=== PATIENT | female | born 1970 | race Native Hawaiian/Other Pacific Islander ===

== ENCOUNTER 2018-06-20 09:00 | Emergency (ER) | payer SELFPAY ==
[2018-06-20 09:04] VITALS: BMI 34.4
--- NOTE | 2018-06-20 09:32 | C.PDOC ---
Time Seen by Provider: 06/20/18 09:11 Chief Complaint (Nursing): Dizziness/Lightheaded Past Medical History Vital Signs: Last Vital Signs Temp 99.1 F 06/20/18 09:04 Pulse 64 06/20/18 09:04 Resp 18 06/20/18 09:04 BP 127/79 06/20/18 09:04 Pulse Ox 99 06/20/18 09:04 - Medical History PMH: Anxiety (patient stated has had panic attacks), Asthma, Gall Bladder Disease, HTN, Hypothyroidism Denies: Chronic Kidney Disease Family History: States: Unknown Family Hx - Social History Hx Tobacco Use: No Hx Alcohol Use: No Hx Substance Use: No - Immunization History Hx Tetanus Toxoid Vaccination: No Hx Influenza Vaccination: Yes Hx Pneumococcal Vaccination: No ED Course And Treatment O2 Sat by Pulse Oximetry: 99 Disposition - Disposition
--- NOTE | 2018-06-20 09:33 | C.PDOC ---
History Of Present Illness 48 years old female presents to ED for complaints of left shoulder pain associated with intermittent dizziness that began 2 weeks ago. Patient describes pain is sharp and worsens with movement. Denies injuries, swelling, fever, chest pain, or any other complaints. Time Seen by Provider: 06/20/18 09:11 Chief Complaint (Nursing): Dizziness/Lightheaded History Per: Patient History/Exam Limitations: no limitations Onset/Duration Of Symptoms: Days Current Symptoms Are (Timing): Still Present Recent travel outside of the [place]: No Past Medical History Reviewed: Historical Data, Nursing Documentation, Vital Signs Vital Signs: Last Vital Signs Temp 99.1 F 06/20/18 09:04 Pulse 64 06/20/18 09:04 Resp 18 06/20/18 09:04 BP 127/79 06/20/18 09:04 Pulse Ox 99 06/20/18 09:04 - Medical History PMH: Anxiety (patient stated has had panic attacks), Asthma, Gall Bladder Disease, HTN, Hypothyroidism Denies: Chronic Kidney Disease Family History: States: Unknown Family Hx - Social History Hx Tobacco Use: No Hx Alcohol Use: No Hx Substance Use: No - Immunization History Hx Tetanus Toxoid Vaccination: No Hx Influenza Vaccination: Yes Hx Pneumococcal Vaccination: No Review Of Systems Except As Marked, All Systems Reviewed And Found Negative. Constitutional: Negative for: Fever, Chills Cardiovascular: Negative for: Chest Pain Gastrointestinal: Negative for: Nausea, Vomiting, Diarrhea Musculoskeletal: Positive for: Shoulder Pain (Left shoulder ) Skin: Negative for: Rash Neurological: Positive for: Dizziness. Negative for: Weakness, Numbness Physical Exam - Physical Exam Appears: Non-toxic, No Acute Distress Skin: Normal Color, Warm, Dry, No Rash Head: Atraumatic, Normacephalic Eye(s): bilateral: Normal Inspection, PERRL, EOMI Oral Mucosa: Moist Neck: Normal ROM, Supple Cardiovascular: Rhythm Regular, No Murmur Respiratory: Normal Breath Sounds, No Rales, No Rhonchi, No Wheezing Gastrointestinal/Abdominal: Soft, No Tenderness, No Distention Extremity: Tenderness (Diffuse left deltoid muscle area tenderness. ), Other (Active ROM decreased due to pain. Normal passive ROM. No weakness or sensation deficit in left hand. ) Extremity: Bilateral: Normal Color And Temperature Pulses: Left Radial: Normal, Right Radial: Normal Neurological/Psych: Oriented x3, Normal Speech, Normal Motor, Normal Sensation, Normal Reflexes ED Course And Treatment O2 Sat by Pulse Oximetry: 99 (RA) Pulse Ox Interpretation: Normal - Other Rad Shoulder X-Ray X-Ray: Viewed By Me, Read By Radiologist Interpretation: Date of service: 06/20/2018. PROCEDURE: Radiographs of the Left Shoulder. HISTORY: pain. COMPARISON: No prior. FINDINGS: BONES: No acute fracture or destructive bony lesion identified. JOINTS: Normal. Glenohumeral and acromioclavicular joints preserved. No osteoarthritis. SOFT TISSUES: Evidence of calcific tendinosis overlying the lateral left humeral head region. OTHER FINDINGS: None. IMPRESSION: Calcific tendinosis. No acute fracture or dislocation identified. Medical Decision Making Medical Decision Making: Plan: * Toradol * Flexeril * EKG * Blood work * Shoulder X-Ray EKG: * Normal sinus rhythm 61 bpm * No ST Elevation * QT normal Progress: Patient reports her pain improved. Denies any complaints at this time. Patient is stable for discharge and will be discharged. Care instructions given and patient is in agreement. Return if symptoms persist or worsen. Disposition Counseled Patient/Family Regarding: Studies Performed, Diagnosis, Need For Followup, Rx Given - Disposition Referrals: Maldonado Boyle III, MD [Staff Provider] - Disposition: HOME/ ROUTINE Disposition Time: 10:51 Condition: STABLE Prescriptions: Ibuprofen [Motrin] 600 mg PO TID #20 tab Methocarbamol [Robaxin] 500 mg PO BID 7 Days #18 tab Instructions: Shoulder Pain (DC) Forms: General Discharge Instructions, [facility] (Bengali), Work Excuse - POA Present On Arrival: None - Clinical Impression Clinical Impression: Left shoulder pain - Scribe Statement The provider has reviewed the documentation as recorded by the Scribe Wood Mustafa All medical record entries made by the Scribe were at my direction and personally dictated by me. I have reviewed the chart and agree that the record accurately reflects my personal performance of the history, physical exam, medical decision making, and the department course for this patient. I have also personally directed, reviewed, and agree with the discharge instructions and disposition.
--- NOTE | 2018-06-20 09:48 | RAD ---
Date of service: 06/20/2018 PROCEDURE: Radiographs of the Left Shoulder HISTORY: pain COMPARISON: No prior. FINDINGS: BONES: No acute fracture or destructive bony lesion identified. JOINTS: Normal. Glenohumeral and acromioclavicular joints preserved. No osteoarthritis. SOFT TISSUES: Evidence of calcific tendinosis overlying the lateral left humeral head region. OTHER FINDINGS: None. IMPRESSION: Calcific tendinosis. No acute fracture or dislocation identified.
[2018-06-20 11:47] VITALS: BP 115/71; PULSE 54; RESP 20; TEMP 98.2; O2SAT 98
--- NOTE | 2018-06-24 15:58 | CARD ---
APPROVED REPORT Date of service: 06/20/2018 EKG Measurement Heart [id number] <Conclusion> Normal sinus rhythm Cannot rule out Anterior infarct, age undetermined Abnormal ECG
== END 2018-06-20 11:40 | disposition home or self-care (01) ==
LOC: C.ER 09:00
DX: M25.512 Pain in left shoulder (principal)
CPT/HCPCS: 73030; 82948; 93005; 96372; 99285; J1885